=== PATIENT | male | born 1975 | race Hispanic/Latino ===

== ENCOUNTER 2016-05-04 20:42 | Emergency (ER) | payer SELFPAY ==
[2016-05-04 21:17] LABS: ETHYL ALCOHOL 487 mg/dL (<10)
[2016-05-04 21:21] LABS: TROPONIN I < 0.012 ng/mL (0.00-0.034)
[2016-05-04] MEDS ORDERED: PHENOBARB/HYOSCY/ATROPINE/SCOP 16.2 MG/5 ML SYR ONE (21:51)
[2016-05-04] MEDS ORDERED: MAG-AL PLUS XS SUSP 30 ML UDC ONE (21:51)
[2016-05-04] MEDS ORDERED: LIDOCAINE VISCOUS 2% 15 ML UDC ONE (21:52)
[2016-05-04] MEDS ORDERED: NORMAL SALINE 100 ML IV ONE (22:05)
[2016-05-04] MEDS ORDERED: PANTOPRAZOLE 40 MG VIAL IV ONE (22:05)
[2016-05-04 22:13] LABS: A/G RATIO 1.1; ALBUMIN 4.9 g/dL (3.5-5.0); ALKALINE PHOSPHATASE 96 U/L (38-126); ALT 299 U/L (21-72); AST 318 U/L (17-59); BILIRUBIN, TOTAL 0.8 mg/dL (0.2-1.3); BLOOD UREA NITROGEN 9 mg/dL (9-20); CALCIUM 9.3 mg/dL (8.4-10.2); CHLORIDE 101 mmol/L (98-107); CREATININE 0.7 mg/dL (0.7-1.3); EST GLOMERULAR FILTRATION RATE > 60 mL/min; GLUCOSE 103 mg/dL (70-100); LIPASE 89 U/L (23-300); POTASSIUM 4.1 mmol/L (3.5-5.1); SODIUM 145 mmol/L (137-145); TOTAL PROTEIN 9.4 g/dL (6.3-8.2)
[2016-05-04 22:17] LABS: BASOPHILS 0.7 % (0.0-2.0); EOSINOPHILS 0.4 % (0.0-6.0); HEMATOCRIT 51.7 % (42.0-54.0); HEMOGLOBIN 17.8 g/dL (14.0-18.0); LYMPHOCYTES 44.9 % (20.0-40.0); LYMPHOCYTES# 3.2 X 10^3uL (0.8-3.8); MEAN CELL VOLUME 93.5 fL (80.0-100.0); MEAN CORPUS. HGB CONCENTRATION 34.4 g/dL (32.0-36.0); MEAN CORPUSCULAR HEMOGLOBIN 32.1 pg (29.0-35.0); MEAN PLATELET VOLUME 7.7 fL (7.4-10.4); MONOCYTES 7.1 % (2.0-10.0); MONOCYTES# 0.5 X 10^3uL (0.2-1.0); NEUTROPHILS 46.9 % (54.0-75.0); NEUTROPHILS# 3.3 X 10^3uL (2.6-6.7); PLATELET COUNT 292 X 10^3uL (130-440); RED BLOOD COUNT 5.53 X 10^6uL (4.20-6.10); RED CELL DISTRIBUTION WIDTH 13.6 % (11.5-14.5)
[2016-05-04] MEDS ORDERED: ONDANSETRON HCL 4 MG/2 ML VIAL ONE (22:32)
--- NOTE | 2016-05-04 23:41 | ER NURSING DOCUMENTATION ---
Nurse's Notes [facility] Name:Mukul Mcgowan Age:40 yrs Sex:Male :1975 Arrival Date:05/04/2016 Time:20:42 BedTrauma-C Private MD:Physician, No Diagnosis:Alcohol Abuse;Non-Cardiac Chest Pain;Abdominal Pain, Epigastric;Gastritis;Alcoholic Hepatitis Presentation: 05/04 20:50 Presenting complaint: EMS states: pt under arrest, highly intoxicated. c/o chest pain lb while at prison. 20:50 Acuity: CHADD 3 lb 20:52 Transition of care: Other [facility]. AIR CAT ACTIVATION no. lb 20:52 Method Of Arrival: EMS: 410 lb 20:54 Asprin Given n/a. Notified ED Physician of Dr. Lindquist notified. lb Triage Assessment: 20:55 General: Appears unkempt, Behavior is agitated, restless, Smells of alcohol. Pain: lb Denies pain. Cardiovascular: Rhythm is sinus rhythm. Historical: - Allergies: No known drug Allergies; - Home Meds: 1. None - PMHx: Unable to obtain; - PSHx: Unable to obtain; - Tetanus: unable to assess. - Ebola Screening: : Patient denies exposure to infectious person. Patient denies travel to an Ebola-affected area in the 21 days before illness onset. . - Immunization history: Unable to Obtain. - Social history: Smoking status: unknown if patient ever smoked tobacco. Patient uses alcohol on a daily basis. Screenin:57 Infectious Disease Risk Unable to Obtain. Abuse screen: Unable to Obtain. Nutritional lb screening: No deficits noted. 23:38 Suicide Risk Assessment: Suicidal Thinking Present - No ( 0 points), Past Attempts - No lb (0 points), Total Suicide Risk Assessment Score: Less than 3 (Minimal noted risk for suicide). Assessment: 20:56 See Triage Assessment done by same RN. Pain: Denies pain. Pain does not radiate. Pain lb began years ago. Vital Signs: 20:56 BP 137 / 95; Pulse 100; Resp 20; Pulse Ox 95% on 2 lpm NC; Pain 0/10; lb 21:44 BP 140 / 91; Pulse 97; Resp 24; Pulse Ox 96% on 2 lpm NC; lb 22:40 BP 133 / 100; Pulse 83; Resp 20; Pulse Ox 97% on 2 lpm NC; lb 23:39 BP 133 / 100; Pulse 82; Resp 20; Pulse Ox 96% on R/A; Pain 6/10; lb ED Course: 20:43 Patient arrived in ED. em2 20:43 Physician, No is Private Physician. em2 20:50 Alexa Olvera is Primary Nurse. lb 20:50 Inserted peripheral IV: 20 gauge in right antecubital area and blood collected. lb 20:51 Triage completed. lb 20:57 Valuables Remains with patient. creative recruiter on. Pulse ox on. NIBP on. police at bedside. 21:41 Jaycob Lindquist MD is Attending Physician. tl1 21:49 Port Xray Completed. kory 22:54 EKG attached lb 22:55 EKG attached lb Administered Medications: 22:00 Drug: GI Cocktail w/ Donnatol - (Maalox Suspension 30 ml, Phenobarbital-Belladonna 15 lb ml, Lidocaine Liquid 2 % 15 ml); Route: PO; 23:37 Follow up: Response: Pain is decreased lb 22:00 Drug: NS 0.9% 1000 ml; Route: IV; Rate: bolus; Site: right antecubital; lb 23:37 Follow up: IV Status: Completed infusion; IV Intake: 400ml lb 22:00 Drug: Protonix 80 mg; Route: IVPB; Site: right antecubital; lb 23:37 Follow up: Response: Pain is decreased; IV Intake: 100ml lb 23:41 Follow up: IV Status: Completed infusion lb 22:07 Not Given (med not available md aware): Carafate 1 grams PO once; Dissolve in 10ml waterlb 22:30 Drug: Zofran 8 mg; Route: IVP; Infused Over: 2 mins; Site: right antecubital; lb 23:38 Follow up: Response: Nausea is decreased lb Intake: 23:37 IV: 400ml; Total: 400ml. lb 23:37 IV: 100ml; Total: 500ml. Outcome: 22:32 Discharge ordered by . tl1 23:39 Discharged to police custody d/c to prison in police custody. report to Chastity HERNANDEZ at the prison 23:39 Condition: stable 23:39 Discharge Assessment: Patient awake and alert. Oriented to person, place and time. Patient verbalized understanding of disposition instructions. Patient able 23:39 Instructed on discharge instructions, follow up and referral plans. 23:39 IV D/Mando 23:40 Patient left the ED. morgan 05/05 11:10 Discharge F/U Call: Unable to reach: left message with person person taking message: lp Signatures: Jacqui Still RN RN Guerita Mendez-reg, Jia-selena em2 Jaycob Lindquist MD MD tl1 Alexa Olvera
--- NOTE | 2016-05-04 23:41 | ER PHYSICIAN DOCUMENTATION ---
Physician Documentation [facility] Name:Mukul Mcgowan Age:40 yrs Sex:Male :1975 Arrival Date:05/04/2016 Time:20:42 BedTrauma-C Private MD:Physician, No ED Jaycob Souza Disposition: 05/04 22:30 Critical Care: not applicable. tl1 22:49 Chart complete. tl1 Disposition: 05/04/16 22:32 Discharged to Home/Self Care. Impression: Alcohol Abuse, Non-Cardiac Chest Pain, Abdominal Pain, Epigastric, Gastritis, Alcoholic Hepatitis. - Condition is Good. - Discharge Instructions: GASTRITIS vs. ULCER, CHEST PAIN, Noncardiac (Child). - Medical Reconciliation form form. - Follow up: Private Physician; When: 2 - 3 days; Reason: Recheck today's complaints, Continuance of care. - Problem is new. - Symptoms have improved. - Notes: GET INTO AN ALCOHOL DETOX AND REHAB PROGRAM SARBJIT. HPI: 21:45 This 40 yrs old Male presents to ER via EMS with complaints of Chest Pressure, tl1 ETOH Abuse. 21:45 The patient or guardian reports chest pain that is located primarily in the anterior tl1 chest wall. He is BIB police, under arrest for DV, after reportedly trying to choke his SO. On arrival at the police station he appeared very inebriated and was brought here for evaluation. Shortly after arrival he started to c/o chest pain. He described this as a cold sensation that he has had for 5 days in his mid sternal and left clavicular area. No associated dyspnea, palpitations, n/v/diaphoresis. No prior h/o CAD. Smokes cigarettes occasionally. Denies illicit or other recreational drug use. Admits to heavy alcohol abuse (vodka) for years. After arrival here he started complaining of abdominal pain that is similar to many prior episodes. He is unable to say what aggravates or alleviates this abdominal pain, but he does not think the alcohol is helpful.. Historical: - Allergies: No known drug Allergies; - Home Meds: 1. None - PMHx: Unable to obtain; - PSHx: Unable to obtain; - Tetanus: unable to assess. - Ebola Screening: : Patient denies exposure to infectious person. Patient denies travel to an Ebola-affected area in the 21 days before illness onset. . - Immunization history: Unable to Obtain. - Social history: Smoking status: unknown if patient ever smoked tobacco. Patient uses alcohol on a daily basis. ROS: 22:21 Cardiovascular: Negative for chest pain, orthopnea, palpitations. tl1 22:21 Respiratory: Negative for cough, hemoptysis, pleurisy, shortness of breath, wheezing. 22:21 Abdomen/GI: Positive for abdominal pain, nausea, Negative for vomiting, diarrhea, abdominal cramps, abdominal distension, hematemesis, black/tarry stool, rectal bleeding. 22:21 Neuro: Positive for gait disturbance, slurred speech, Negative for headache. 22:21 All other systems are negative. Exam: 22:22 ENT: Nares patent. No nasal discharge, no septal abnormalities noted. Tympanic tl1 membranes are normal and external auditory canals are clear. Oropharynx with no redness, swelling, or masses, exudates, or evidence of obstruction, uvula midline. Mucous membranes moist. Neck: Trachea midline, no thyromegaly or masses palpated, and no cervical lymphadenopathy. Supple, full range of motion without nuchal rigidity, or vertebral point tenderness. No Meningismus. 22:22 Chest/axilla: Normal chest wall appearance and motion. Nontender with no deformity. tl1 No lesions are appreciated. 22:22 Constitutional: The patient appears alert, awake, non-diaphoretic, non-toxic, well developed, well hydrated, well nourished, anxious. 22:22 Head/face: Exam is negative for acute changes, obvious evidence of injury or deformity, hematoma, raccoon eyes. 22:22 Eyes: Periorbital structures: appear normal, Pupils: equal, round, and reactive to light and accomodation, Extraocular movements: intact throughout, Conjunctiva: injected, bilaterally. 22:22 Cardiovascular: Rate: normal, Rhythm: regular, Heart sounds: normal, Edema: is not appreciated, JVD: is not appreciated. 22:22 Respiratory: the patient does not display signs of respiratory distress, Respirations: normal, Breath sounds: are normal. 22:22 Abdomen/GI: Inspection: abdomen appears normal, Bowel sounds: active, Palpation: soft, mild abdominal tenderness, in the epigastric area, Liver: no appreciated palpable abnormalities. 22:22 Back: CVA tenderness, is absent. 22:22 Musculoskeletal/extremity: Exam is negative for acute changes. 22:22 Skin: Exam negative for acute changes. 22:22 Neuro: Orientation: is normal, Mentation: is normal, Cranial nerves: grossly normal, Motor: moves all fours. Vital Signs: 20:56 BP 137 / 95; Pulse 100; Resp 20; Pulse Ox 95% on 2 lpm NC; Pain 0/10; lb 21:44 BP 140 / 91; Pulse 97; Resp 24; Pulse Ox 96% on 2 lpm NC; lb 22:40 BP 133 / 100; Pulse 83; Resp 20; Pulse Ox 97% on 2 lpm NC; lb 23:39 BP 133 / 100; Pulse 82; Resp 20; Pulse Ox 96% on R/A; Pain 6/10; lb MDM: 20:56 Patient medically screened. tl1 22:25 Differential diagnosis: acute pericarditis, anxiety, coronary artery disease chest wall tl1 pain, cholecystitis, Cholelithiasis costochondritis, esophagitis, gastritis, myocarditis, pancreatitis, pericarditis, pneumonia, pneumothorax. The patient was not given aspirin in the Emergency Department due to not indicated. The patient's pulmonary embolism risk score was calculated as follows: No Risks (0 Pts). JESE Risk Score: TOTAL SCORE = 0. Data reviewed: vital signs, nurses notes, lab test result(s), amylase and lipase, cardiac enzymes, CBC, electrolytes, hepatic panel, EKG, and as a result, I will discharge patient. Data interpreted: lunchroom monitor: Pulse oximetry:. Test interpretation: by ED physician or midlevel provider: plain radiologic studies. Counseling: I had a detailed discussion with the patient and/or guardian regarding: the historical points, exam findings, and any diagnostic results supporting the discharge/admit diagnosis, lab results, radiology results, the need for outpatient follow up, to return to the emergency department if symptoms worsen or persist or if there are any questions or concerns that arise at home. ECG:. 22:44 ED course: The cold sensation in his chest resolved without treatment. His abdominal tl1 pain was improved but not completely resolved. Serial abdominal exams were benign, but showed some mild persistent RUQ and epigastric TTP. He was hemodynamically stable and received 1 liter of IVNS. Serial ECGs were unchanged and without ischemia or other significant abnormalities.. His mental status slowly improved and he was awake and talkative throughout his ED stay.. 22:48 Patient did not receive fibrinolytic due to not indicated. Medication response: The tl1 patient's symptoms have improved, GI Cocktail partially relieved the patient's pain, zofran and protonix IV. 22:54 EKG attached lb 22:55 EKG attached lb 05/04 21:18 Order name: ETHYL ALCOHOL; Complete Time: 22:44 EDMS 05/05 18:13 Interpretation: Abnormal: ETHYL ALCOHOL 487. 1 05/04 21:22 Order name: TROPONIN I; Complete Time: 22:44 EDMS 05/05 18:13 Interpretation: TROPONIN I < 0.012. 1 05/04 22:14 Order name: COMPREHENSIVE METABOLIC PANEL; Complete Time: 22:44 EDMS 05/04 22:32 Interpretation: Normal Except: ALT 299; AST 318; TOTAL PROTEIN 9.4. 1 05/04 22:14 Order name: LIPASE; Complete Time: 22:44 EDMS 05/04 22:33 Interpretation: Normal: LIPASE 89. [facility] 05/04 22:18 Order name: CBC AUTO DIF, MDIF/RMOR IF IND; Complete Time: 22:44 EDMS 05/04 22:33 Interpretation: Normal Except: NEUTROPHILS 46.9; LYMPHOCYTES 44.9. 1 05/04 21:46 Order name: EKG - 12 Lead tl1 EC:47 Rate is 95 beats/min. Rhythm is regular, Normal Sinus Rhythm. QRS Allen is Normal. QRS tl1 is negative in leads III, aVF, aVR, V1, V2. CA interval is normal at 146 msec. QRS interval is normal at 85 msec. QT interval is normal at 352 msec. No Q waves. T waves are Normal. No ST changes noted. Clinical impression: NSR, LAE. Interpreted by me. Reviewed by me. Dispensed Medications: 22:00 Drug: GI Cocktail w/ Donnatol - (Maalox Suspension 30 ml, Phenobarbital-Belladonna 15 lb ml, Lidocaine Liquid 2 % 15 ml); Route: PO; 23:37 Follow up: Response: Pain is decreased lb 22:00 Drug: NS 0.9% 1000 ml; Route: IV; Rate: bolus; Site: right antecubital; lb 23:37 Follow up: IV Status: Completed infusion; IV Intake: 400ml lb 22:00 Drug: Protonix 80 mg; Route: IVPB; Site: right antecubital; lb 23:37 Follow up: Response: Pain is decreased; IV Intake: 100ml lb 23:41 Follow up: IV Status: Completed infusion lb 22:07 Not Given (med not available aware): Carafate 1 grams PO once; Dissolve in 10ml waterlb 22:30 Drug: Zofran 8 mg; Route: IVP; Infused Over: 2 mins; Site: right antecubital; lb 23:38 Follow up: Response: Nausea is decreased lb Signatures: Jaycob Lindquist MD MD tl1 Alexa Olvera lb
--- NOTE | 2016-05-05 10:46 | RADIOLOGY REPORT ---
Limited inspiration single portable view of the chest, without prior films for comparison, demonstrates the heart and vessels to be unremarkable. The lung kern are clear. No infiltrate, fluid or pneumothorax is seen. IMPRESSION: Unremarkable limited inspiration single portable view of the chest. MTDD
== END 2016-05-04 23:41 | disposition home or self-care (01) ==
LOC: EEVIPCON 20:42 → ER 20:42
DX: F10.129 Alcohol abuse with intoxication, unspecified (principal); R07.89 Other chest pain; K29.70 Gastritis, unspecified, without bleeding; K70.10 Alcoholic hepatitis without ascites; R11.0 Nausea; Z74.3 Need for continuous supervision
CPT/HCPCS: 71010; 80053; 80320; 83690; 84484; 85025; 96365; 96366; 96375; 99284; A0425; A0427; J2405